=== PATIENT | female | born 2005 | race Caucasian/White ===

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

== ENCOUNTER 2023-03-14 12:59 | Emergency (ER) | payer BC, SELFPAY ==
[2023-03-14 13:00] VITALS: BP 157/102; PULSE 97; RESP 18; TEMP 36.3; O2SAT 99; BMI 35.3
--- NOTE | 2023-03-14 13:14 | CT_ITS ---
STUDY: CT ABDOMEN AND PELVIS WITHOUT CONTRAST REASON FOR EXAM: Female, 18 years old. Left lower quadrant pain with radiation to the left flank. History of kidney stones. RADIATION DOSAGE (If Supplied By Facility): CTDIvol = ( 15.52 ) mGy, DLP = ( 794.78 ) mGycm TECHNIQUE: Transaxial images were obtained from the dome of the diaphragm to the symphysis pubis without oral contrast, and without intravenous contrast. Sagittal and coronal images were reconstructed. Individualized dose optimization techniques were used for this CT. COMPARISON: Comparison is made with prior study dated September 26, 2022. FINDINGS: The visualized lung bases are unremarkable. The visualized portions of the heart are within normal limits. There is decreased attenuation of the liver consistent with steatosis. Normal gallbladder and extrahepatic biliary system. Normal spleen. Normal pancreas. Normal bilateral adrenal glands. Punctate nonobstructive calculus in the upper pole of the right kidney. 2 mm calculus in the midpole calyx of the right kidney. Punctate calculus in the midpole calyx of the left kidney. Mild degree of left hydronephrosis and left hydroureter due to a punctate calculus in the left ureterovesical junction. There is a small hiatal hernia. Normal small intestine. Normal colon. The appendix is visualized and appears normal. Normal abdominal aorta. Normal inferior vena cava. Normal retroperitoneum. The urinary bladder is empty. Normal abdominal wall. Normal osseous structures. CT/Abdomen/Pelvis without Cont IMPRESSION: Small nonobstructive bilateral intrarenal calculi. Punctate calculus at the left ureterovesical junction causing a mild degree of left hydronephrosis and hydroureter. Fatty infiltration of the liver. Electronically Signed: Balbir Godoy MD at 14:17 EDT ,
--- NOTE | 2023-03-14 13:19 | ED.VIS.GI ---
HPI HPI - GI History of Present Illness Chief Complaint: Abd Pain Detail of Chief Complaint: Left flank pain this morning. Informant: patient Abdominal Pain/Flank Pain Onset: Today and Hours Context: Sudden Onset Timing: Continuous Quality: Sharp and Stabbing Location: Left Flank Current Severity: Mild Maximum Severity: Moderate Worsened by: Nothing Relieved by: Nothing Nausea/Vomiting/Emesis GI Symptom: Positive for Nausea Onset: Today Severity: Mild Diarrhea/Melena/Hematochezia GI Symptom: Negative for Diarrhea, Melena or Hematochezia Associated Symptoms Associated Symptoms: Negative for Dysuria, Frequency, Hematuria or Urgency Narrative Narrative: 18 left flank pain. History of polycystic ovarian syndrome. Thinks she may have previously had a kidney stone but is never actually been worked up for that. Last menstrual period was 2 weeks ago. Today around 8 AM had sudden onset of left flank pain. Associated nausea no vomiting or diarrhea. No fever. No dysuria. No vaginal bleeding or discharge. Prior similar symptoms: Yes Recent Illness/Hospitalization: No PFSH PFSH Medical History Allergies Elevated blood pressure reading Kidney stone Obesity PCOS (polycystic ovarian syndrome) Pneumonia UTI (urinary tract infection) Home Medications metformin 1,000 mg tablet 1,000 mg PO BID #60 tabs 01/02/23 [Rx Last Taken Unknown] ondansetron 4 mg disintegrating tablet 4 mg PO Q6H PRN nausea and vomiting #7 tabs 03/14/23 [Rx Last Taken Unknown] oxycodone-acetaminophen 5 mg-325 mg tablet (Percocet) 1 tab PO Q8H PRN pain 2 days #10 tabs 03/14/23 [Rx Last Taken Unknown] Allergy/AdvReac Type Severity Reaction Status Date / Time cows Allergy Mild Swelling Uncoded 01/02/23 08:36 horses Allergy Mild Swelling Uncoded 01/02/23 08:36 cockroaches Allergy Other Uncoded 01/02/23 08:36 Family History Other Anxiety Colon cancer Diabetes Mental disorder Ovarian cancer Skin cancer Thyroid disorder Surgical History History of knee surgery [place] teeth removed Social History Smoking Status: Never smoker alcohol intake: never frequency: daily ROS ROS ED ROS Narrative Left flank pain with nausea. Review of Systems ROS Unobtainable: Denies due to encephalopathy Constitutional Constitutional ED: Denies chills or fever(s) ENT ENT ED: Denies ear pain Cardiovascular Cardiovascular: Denies chest pain Respiratory/Chest Respiratory/Chest: Denies cough or dyspnea Gastrointestinal Gastrointestinal: Reports abdominal pain and nausea; Denies constipation, diarrhea, melena or vomiting Genitourinary Genitourinary ED: Denies dysuria or hematuria Musculoskeletal Musculoskeletal: Denies arthralgias Integumentary Denies abscess Neurologic Neurologic: Denies headache(s) Psychiatric Psychiatric: Denies anxiety Endocrine Endocrinology: Denies polydipsia Hematologic/Lymphatic Hematologic/Lymphatic: Denies easy bleeding Allergic/Immunologic Allergic/Immunologic ED: Denies mouth swelling or tongue swelling EXAM Physical Exam Narrative Exam Narrative: -year-old female no acute distress. Vital signs stable afebrile. H EENT exam unremarkable. Lungs clear. Heart regular rhythm. Abdomen soft nondistended normal bowel sounds no peritoneal signs. Mild left upper quadrant tenderness. No organomegaly or masses. No distention. Right upper and right lower quadrants are nontender. Back is nontender. Moving all 4 extremities. Nontender no edema. Awake and alert. Const Vital Signs: 03/14/23 13:00 03/14/23 15:33 Temperature 97.4 F L Temperature Source Temporal Pulse Rate 97 68 Respiratory Rate 18 16 Blood Pressure 157/102 H 126/78 H Blood Pressure Mean 120 94 Pulse Ox 99 Oxygen Delivery Method Room Air Room Air Positive well nourished and well developed; Negative for cachectic, contractures or unkempt General Appearance ED: well developed and NAD; Negative for unkempt, cachectic, contractures or pallor Nutritional Appearance: Negative for cachectic HEENT Reports moist mucous membranes normocephalic and atraumatic; Negative for trauma or tenderness Eyes PERRL and EOMs intact bilaterally General Eye ED: Negative for pale conjunctiva or scleral icterus Neck no lymphadenopathy, supple and no JVD General: Negative for tenderness Carotids: Negative for other Lymph Lymphatic: Negative for other Resp normal respiratory effort and clear to auscultation bilaterally Effort and Inspection: Negative for respiratory distress Auscultation: Negative for rales, rhonchi or wheezes Cardio regular rate, regular rhythm, S1 normal heart sound, S2 normal heart sound and no murmurs Rate: Negative for bradycardia or tachycardic Rhythm: Negative for abnormal rhythm GI non-tender, non-distended and no masses Inspection: Negative for abdominal distention Auscultation: normoactive bowel sounds Palpation: soft and tender; Negative for guarding, rigid, hepatomegaly, splenomegaly, hernia, mass, pulsatile mass or rebound tenderness present Back/Spine no CVA tenderness General Back: Negative for CVA tenderness Cervical Spine: Negative for cervical spine tenderness Thoracic Spine / Upper Back: Negative for thoracic spinal tenderness Lumbar Spine / Lower Back: Negative for lumbar spinal tenderness Coccyx: Negative for other Extremity full ROM General Extremety ED: Negative for edema, tenderness or other findings General Extremity: Negative for edema or other findings Neuro CN's II-XII intact bilaterally and moves all extremities Sensorium / Orientation: alert, oriented to person, oriented to place and oriented to time; Negative for orientation impaired, confused, lethargic or stuporous Motor Exam: strength 5/5 throughout Psych mental status grossly normal and thought process normal Appearance: Negative for unkempt Attitude: No agitated Mood & Affect: Negative for depressed, anxious or tearful Skin no wounds General Skin Exam: Negative for jaundice or pallor Lesions: no lesions Rashes: no rashes Trauma: Negative for abrasion Nails: Negative for discolored MDM MDM MDM Narrative Medical decision making narrative: 18-year-old female no acute distress with left flank pain. Being evaluated for possible kidney stone versus UTI versus other etiologies. Treated with Toradol, morphine for pain and Zofran. Repeat exam to see patient is doing well. Abdomen is benign. We discussed all of her test results. Tests and exam are consistent with a left-sided kidney stone. She is feeling improved. Will discharge home. Precautions were placed. Zofran for nausea. Follow-up as needed. Return if worse. History & Record Review Discussion w/independent historian: Patient Lab Data Attestation: I reviewed the patient's lab results. Lab results narrative: Urinalysis shows no nitrites. Occult blood. Ketones. No white or red cells. No nitrites. Chemistries show sodium 134 gap of 8 normal BUN and creatinine 0.9. Liver enzymes unremarkable. Serum test negative. CBC shows an elevated white count of 14.8. H&H 12.7 and 40. Platelets 275. Labs: Laboratory Results - last 24 hr 03/14/23 03/14/23 14:21 15:00 WBC 14.8 H RBC 4.33 Hgb 12.7 Hct 40.3 MCV 93.1 MCH 29.3 MCHC 31.5 L RDW Std Deviation 42.4 RDW Coeff of Skyla 12.3 Plt Count 275 MPV 10.3 Immature Gran % (Auto) 0.500 Neut % (Auto) 93.6 H Lymph % (Auto) 3.4 L [place] % (Auto) 2.3 Eos % (Auto) 0.0 Baso % (Auto) 0.2 Absolute Neuts (auto) 13.8 H Absolute Lymphs (auto) 0.50 L Blast Cells % 0 Nucleated RBC % 0 Differential Comment SEE COMMENT Platelet Estimate ADEQUATE Plt Morphology Comment 0 Anisocytosis RARE Macrocytosis RARE Sodium 134 L Potassium 4.5 Chloride 105 Carbon Dioxide 21.0 Anion Gap 8 BUN 10 Creatinine 0.92 Estim Creat Clear Calc 84.23 Est GFR (MDRD) Af Amer 100 Est GFR (MDRD) Non-Af 83 BUN/Creatinine Ratio 10.9 Glucose 100 Calcium 8.9 Total Bilirubin 0.50 AST 26 ALT 38 Alkaline Phosphatase 83 Total Protein 7.1 Albumin 3.7 Globulin 3.4 Albumin/Globulin Ratio 1.1 Serum , Qual NEGATIVE Urine Color Yellow Urine Clarity Cloudy Urine pH 6.0 Ur Specific [place] 1.025 Urine Protein 30 H Urine Glucose (UA) Normal Urine Ketones 150 A* Urine Occult Blood 250 H Urine Nitrite Negative Urine Bilirubin Negative Urine Urobilinogen Normal Ur Leukocyte Esterase 100 H Urine RBC 0-5 SEEN Urine WBC 0 SEEN Ur Squamous Epith Cells 0 SEEN Amorphous Sediment 3+ Urine Bacteria 0 SEEN Urine Mucus 0 SEEN Radiography Diagnostic Testing: Clinical Impression(s) from Imaging Studies Abdomen/Pelvis CT 03/14/23 13:14 IMPRESSION: Small nonobstructive bilateral intrarenal calculi. Punctate calculus at the left ureterovesical junction causing a mild degree of left hydronephrosis and hydroureter. Fatty infiltration of the liver. Electronically Signed: Balbir Godoy MD at 14:17 EDT , Discharge Plan Triage Chief Complaint: Abd Pain ED Provider: Anirudh Velásquez Dx/Rx/DC Orders Clinical Impression: Acute left flank pain, Kidney stone on left side Instructions: ED Kidney Stone w/ Colic Prescriptions: New ondansetron 4 mg tablet,disintegrating 4 mg PO Q6H PRN (Reason: nausea and vomiting) Qty: 7 0RF oxycodone-acetaminophen [Percocet] 5-325 mg tablet 1 tab PO Q8H PRN (Reason: pain) 2 Days Qty: 10 0RF No Action metformin 1,000 mg tablet 1,000 mg PO BID Qty: 60 6RF Primary Care Provider: Ulises Hector Referrals: Ulises Hector MD [Primary Care Provider] - 3-5 Days if not improving Activity Restrictions/Additional Instructions: Left-sided kidney stone. Should pass. Plenty of fluids. Motrin and Percocet for pain. Follow-up with your doctor if not improving. Disposition Disposition: Home, Self Care
[2023-03-14] MEDS: Morphine 4 MG/ML Syringe IV (13:23)
[2023-03-14] MEDS: Ketorolac 30 MG/ML Syringe IV (13:23)
[2023-03-14] MEDS: Ondansetron 4 MG/2 ML Vial IV (13:23)
[2023-03-14 14:45] LABS: Bacteria 0 SEEN /hpf (None Seen); Mucous, Urine 0 SEEN /hpf (<or=2+); Squamous Epithelial Cells - UA 0 SEEN /hpf (5-10); White Blood Cells 0 SEEN /hpf (0-5)
[2023-03-14 14:55] LABS: Color, Urine Yellow (Yellow); Glucose, Dipstick Normal (Normal); Leukocyte Esterase-Dipstick 100 /ul (Negative); Nitrite-Dipstick Negative (Negative); Occult Blood-Urine 250 /ul (Negative); Protein-Dipstick 30 mg/dl (Negative); Specific Gravity, Urine 1.025 (1.002-1.030); Urine Bilirubin Dipstick Negative (Negative); Urine Clarity Cloudy (Clear); Urine Urobilinogen Normal (Normal)
[2023-03-14 14:58] LABS: Ketone-Dipstick 150 mg/dl (Negative)
[2023-03-14 15:06] LABS: Absolute Neutrophil Count 13.8 X10^3/uL (2.0-7.7); Basophil# 0.03 X10^3/uL; Basophil% 0.2 % (0-1); Hematocrit 40.3 % (37-47); Hemoglobin 12.7 g/dL (12.0-15.0); Lymphocyte % 3.4 % (19-41); Mean Corp Hgb Conc 31.5 g/dL (32-36); Mean Corpuscular Hgb 29.3 pg (27.0-32.0); Mean Corpuscular Volume 93.1 fL (81-99); Mean Platelet Vol. 10.3 fl (6.2-12.0); Monocyte# 0.34 X10^3/uL; Monocyte% 2.3 % (0-10); NRBC Flagged by Analyzer 0 % (0-5); Neutrophil # 13.84 X10^3/uL (2.7-7.7); Neutrophil % 93.6 % (47-70); POSITIVE DIFFERENTIAL YES; Platelet Count 275 K/mm3 (150-450); RBC Distribution Width CV 12.3 % (11.6-14.6); RBC Distribution Width SD 42.4 fl (35.1-43.9); Red Blood Count 4.33 M/mm3 (4.2-5.4); White Blood Count 14.8 K/mm3 (4.4-11.0)
[2023-03-14 15:18] LABS: Amorphous Sediment 3+; Red Blood Cells-Urine 0-5 SEEN /hpf (0-5)
[2023-03-14 15:19] LABS: Internal QC Validated? YES +Cl - CLEAR BKGD; Pregnancy, Serum, hCG Quali. NEGATIVE Negative
[2023-03-14] MEDS: morphine 8 MG/ML Syringe 6 MG IV (15:22)
[2023-03-14 15:31] LABS: ALB/GLOB Ratio 1.1 RATIO (0.9-2.4); AST(SGOT) 26 U/L (15-37); Alanine Aminotransfer ALT/SGPT 38 U/L (13-56); Albumin, Serum 3.7 g/dL (3.2-5.0); Alkaline Phosphatase 83 U/L (45-117); Anion Gap 8 (5-15); BUN 10 mg/dL (7-18); BUN/Creat Ratio 10.9 RATIO (10-20); Calcium,Total 8.9 mg/dL (8.5-10.1); Chloride 105 mmol/L (98-107); Creatinine, Serum 0.92 mg/dL (0.55-1.02); EST Glomerular Filtration Rate 83 mL/min (>60); Est Glom Filt Rate - Afr Amer 100 mL/min (>60); Estimated Creatinine Clearance 84.23 ml/min; Globulin 3.4 g/dL (2.2-4.2); Glucose 100 mg/dL (74-106); Potassium 4.5 mmol/L (3.5-5.1); Protein, Total 7.1 g/dL (6.4-8.2); Sodium Level 134 mmol/L (136-145)
[2023-03-14 15:33] VITALS: BP 126/78; PULSE 68; RESP 16
[2023-03-14 15:52] LABS: Differential Indicated SCAN CRITERIA MET
[2023-03-14 15:57] LABS: Anisocytosis RARE; Blast 0 % (0-0); Macrocytosis RARE; Platelet Estimate ADEQUATE (ADEQ); Platelet Morphology 0
--- NOTE | 2023-03-14 16:38 | ED.RN ---
IV removed intact, no bleeding at site. Verbalized understanding of instructions.
== END 2023-03-14 16:40 | disposition home or self-care (01) ==
PROVIDERS: Emergency Provider Emergency Medicine; PCP Family Medicine; Referring Provider Emergency Medicine; Visit Provider Emergency Medicine
DX: R10.9 Unspecified abdominal pain (principal); N20.0 Calculus of kidney
CPT/HCPCS: 36415; 74176; 80053; 81001; 84703; 85025; 96374; 96375; 96376; 99283; J7030; A4216; J2405

== ENCOUNTER 2023-06-20 20:28 | Emergency (ER) | payer BC, SELFPAY ==
[2023-06-20 20:29] VITALS: BP 130/89; PULSE 77; RESP 16; TEMP 36.1; O2SAT 99; BMI 33.5
[2023-06-20 20:31] VITALS: BP 130/89; PULSE 77; RESP 16; TEMP 36.1; O2SAT 99
--- NOTE | 2023-06-20 20:51 | CT_ITS ---
INDICATION: Right flank pain, burning with urination. History of kidney stones. EXAMINATION: CT ABDOMEN AND PELVIS WITHOUT CONTRAST TECHNIQUE: Helically acquired images were obtained of the abdomen and pelvis without IV contrast. 2-D reconstructions reviewed. A radiation dose optimization technique was used for this scan. IV Contrast dosage and agent: None. Oral contrast: None. COMPARISON: CT of abdomen from 09/26/2022 FINDINGS: LOWER CHEST: No acute findings within the imaged lung bases. Heart size within normal limits. Mildly elevated right hemidiaphragm. LIVER: Homogeneous. No discrete mass. GALLBLADDER AND BILIARY TREE: No calcified gallstones identified. No pericholecystic edema demonstrated. No significant biliary ductal dilation. PANCREAS: No discrete mass or peripancreatic edema. SPLEEN: Normal size without discrete mass. ADRENAL GLANDS: Unremarkable. KIDNEYS AND URETERS: There are few small right renal calyceal stones measuring up to 3 mm diameter. Tiny stone within lower pole left kidney. Mild right hydroureteronephrosis secondary to 2.5 mm ureterovesical junction stone. No discrete renal mass. PERITONEUM: No significant free peritoneal fluid. No free air detected. RETROPERITONEUM: No retroperitoneal mass or pathologic fluid collection. BOWEL: No evidence of acute appendicitis. No bowel obstruction or significant bowel thickening. No focal inflammatory change. LYMPH NODES: No enlarged mesenteric or retroperitoneal lymph nodes. VESSELS: No acute findings. No abdominal aortic aneurysm. URINARY BLADDER: 2.5 mm right UVJ stone again noted. No significant bladder wall thickening. REPRODUCTIVE ORGANS: No pelvic masses. ABDOMINAL WALL: No acute findings. BONES: Intact with no suspicious osseous lesion. CT/Abdomen/Pelvis without Cont IMPRESSION: Bilateral nephrolithiasis with mild right obstructive uropathy secondary to 2.5 mm right UVJ stone. Electronically Signed: Roddy Guaman MD at 22:25 EDT ,
--- NOTE | 2023-06-20 21:20 | ED.VIS.FEGU ---
HPI HPI - Female History of Present Illness Chief Complaint: Flank Pain Narrative Narrative: 18 female with right flank pain. She has a history of kidney stones, PCOS. Does complain of dysuria and urinary frequency. She describes the pain on the right side as sharp. She had some nausea but has not vomited. She has not had any fevers. She does state that she had some sweating with the pain. She states that she is concerned she has a kidney stone and last time she waited too long. She states has been able to pass all of her kidney stones in the past. PFSH PFS Medical History (Updated 06/20/23 @ 22:[address] Saman Valencia, DO) Allergies Elevated blood pressure reading Kidney stone Obesity PCOS (polycystic ovarian syndrome) Pneumonia UTI (urinary tract infection) Home Medications metformin 1,000 mg tablet 1,000 mg PO BID #60 tabs 01/02/23 [Rx Last Taken Unknown] hydrocodone-acetaminophen 5-325mg 5mg-325mg 1 tab PO Q6H 3 days #12 TABLETS 06/20/23 [Rx Last Taken Unknown] ondansetron 4 mg disintegrating tablet 4 mg PO Q8H PRN PRN Nausea #14 tabs 06/20/23 [Rx Last Taken Unknown] Allergy/AdvReac Type Severity Reaction Status Date / Time animal dander Allergy Unknown Swelling Verified 06/20/23 20:28 cockroach Allergy Unknown Hives, Verified 06/20/23 20:28 swelling Family History Other Anxiety Colon cancer Diabetes Mental disorder Ovarian cancer Skin cancer Thyroid disorder Surgical History History of knee surgery [place] teeth removed Social History Smoking Status: Current every day smoker tobacco type: e-cigarettes alcohol intake: never frequency: daily ROS ROS ED Constitutional Constitutional ED: Reports sweats; Denies chills or fever(s) Eyes Eyes: Denies blurry vision or change in vision ENT ENT ED: Denies ear pain or sore throat Cardiovascular Cardiovascular: Denies chest pain, palpitations or racing heartbeat Respiratory/Chest Respiratory/Chest: Denies cough, dyspnea or sputum Gastrointestinal Gastrointestinal: Reports abdominal pain and nausea; Denies constipation, diarrhea or vomiting Genitourinary Genitourinary ED: Denies dysuria, hematuria or urinary frequency Musculoskeletal Musculoskeletal: Reports other Details: Left flank pain ; Denies arthralgias, myalgias or neck pain Integumentary Denies abscess, Abrasions or rash Neurologic Neurologic: Denies headache(s), paresthesias or weakness Psychiatric Psychiatric: Denies anxiety, depression, suicidal ideation or suicidal thoughts Endocrine Endocrinology: Denies polydipsia or polyuria EXAM Physical Exam Const Vital Signs: 06/20/23 20:29 06/20/23 20:31 Temperature 97 F L 97 F L Temperature Source Temporal Temporal Pulse Rate 77 77 Respiratory Rate 16 16 Blood Pressure 130/89 H 130/89 H Blood Pressure Mean 102 102 Pulse Ox 99 99 General Appearance ED: Negative for pallor HEENT Reports normocephalic, head/scalp atraumatic and moist mucous membranes Eyes PERRL and EOMs intact bilaterally Neck no lymphadenopathy and supple Chest Wall inspection of chest normal and palpation of chest normal Resp normal respiratory effort and clear to auscultation bilaterally Auscultation: Negative for rales, rhonchi or wheezes Cardio regular rate and regular rhythm GI normal to inspection, nondistended, normoactive bowel sounds and non-distended Auscultation: normoactive bowel sounds Palpation: soft Narrative: Deferred Back/Spine no CVA tenderness General Back: Negative for CVA tenderness Cervical Spine: Negative for cervical spine tenderness Extremity normal to inspection General Extremety ED: Yes edema and tenderness General Extremity: edema Neuro oriented x3 and CN's II-XII intact bilaterally Sensorium / Orientation: alert Motor Exam: strength 5/5 throughout Psych mental status grossly normal Attitude: No agitated Skin no rashes or lesions noted and no wounds General Skin Exam: Negative for jaundice or pallor MDM MDM MDM Narrative Medical decision making narrative: -year-old female presenting with left-sided flank pain. Patient presenting with right flank pain. Differential includes colitis, diverticulitis, gastritis, pancreatitis, constipation, UTI, pyelonephritis, renal calculi, ureteral calculi, bowel obstruction, malignancy, dehydration, electrolyte abnormalities, , ectopic , ovarian cyst, ovarian torsion. Patient medicated with morphine, Zofran, Toradol. Urinalysis to assess for UTI or occult blood. hCG to assess for . CBC to assess white blood cell count, hemoglobin and platelets. BMP to assess function and electrolytes. CBC shows normal white blood cell count, hemoglobin and hematocrit. Platelets were normal. hCG negative. Urinalysis negative for infection but does show occult blood. CT abdomen pelvis was obtained and shows a 2.5 mm right UVJ stone patient was counseled on findings. Patient given [place] and Zofran for follow-up. She will follow-up with urology. Return precautions discussed. Impression: 1. 2.5 mm right UVJ stone 2. Hematuria 3. Nausea Lab Data Attestation: I reviewed the patient's lab results. Labs: Laboratory Results - last 24 hr 06/20/23 06/20/23 21:15 21:20 WBC 8.6 RBC 4.62 Hgb 13.5 Hct 42.0 MCV 90.9 MCH 29.2 MCHC 32.1 RDW Std Deviation 41.0 RDW Coeff of Skyla 12.5 Plt Count 302 MPV 10.2 Immature Gran % (Auto) 0.500 Neut % (Auto) 64.8 Lymph % (Auto) 24.3 [place] % (Auto) 6.1 Eos % (Auto) 3.7 Baso % (Auto) 0.6 Absolute Neuts (auto) 5.6 Absolute Lymphs (auto) 2.08 Nucleated RBC % 0 Sodium 138 Potassium 3.5 Chloride 104 Carbon Dioxide 28.0 Anion Gap 6 BUN 11 Creatinine 0.72 Estim Creat Clear Calc 107.63 Est GFR (MDRD) Af Amer 134 Est GFR (MDRD) Non-Af 110 BUN/Creatinine Ratio 15.4 Glucose 85 Calcium 10.0 Serum , Qual NEGATIVE Urine Color Yellow Urine Clarity Clear Urine pH 6.0 Ur Specific [place] 1.020 Urine Protein 15 H Urine Glucose (UA) Normal Urine Ketones Negative Urine Occult Blood 250 H Urine Nitrite Negative Urine Bilirubin Negative Urine Urobilinogen Normal Ur Leukocyte Esterase 25 H Urine RBC 25-50 SEEN Urine WBC 0-5 SEEN Ur Squamous Epith Cells 0-5 SEEN Urine Bacteria RARE Urine Mucus 0 SEEN Radiography Diagnostic Testing: Clinical Impression(s) from Imaging Studies Abdomen/Pelvis CT 06/20/23 20:51 IMPRESSION: Bilateral nephrolithiasis with mild right obstructive uropathy secondary to 2.5 mm right UVJ stone. Electronically Signed: Roddy Guaman MD at 22:25 EDT , Discharge Plan Triage Chief Complaint: Flank Pain ED Provider: Saman Valencia Dx/Rx/DC Orders Instructions: ED Kidney Stone w/ Colic Prescriptions: New ondansetron 4 mg tablet,disintegrating 4 mg PO Q8H PRN PRN (Reason: Nausea) Qty: 14 0RF hydrocodone-acetaminophen 5-325 mg tablet 1 tab PO Q6H 3 Days Qty: 12 0RF No Action metformin 1,000 mg tablet 1,000 mg PO BID Qty: 60 6RF Primary Care Provider: Ulises Hector Referrals: Ulises Hector MD [Primary Care Provider] - Disposition Disposition: Home, Self Care
[2023-06-20 21:22] LABS: Absolute Lymphocyte Count 2.08 X10^3/uL (0.83-4.51); Absolute Neutrophil Count 5.6 X10^3/uL (2.0-7.7); Basophil# 0.05 X10^3/uL; Basophil% 0.6 % (0-1); Eosinophil# 0.32 X10^3/uL; Eosinophils% 3.7 % (0-5); Hemoglobin 13.5 g/dL (12.0-15.0); Lymphocyte # 2.08 X10^3/ul (0.83-4.51); Lymphocyte % 24.3 % (19-41); Mean Corp Hgb Conc 32.1 g/dL (32-36); Mean Corpuscular Hgb 29.2 pg (27.0-32.0); Mean Corpuscular Volume 90.9 fL (81-99); Mean Platelet Vol. 10.2 fl (6.2-12.0); Monocyte# 0.52 X10^3/uL; Monocyte% 6.1 % (0-10); NRBC Flagged by Analyzer 0 % (0-5); Neutrophil # 5.56 X10^3/uL (2.7-7.7); Neutrophil % 64.8 % (47-70); Platelet Count 302 K/mm3 (150-450); RBC Distribution Width CV 12.5 % (11.6-14.6); Red Blood Count 4.62 M/mm3 (4.2-5.4); White Blood Count 8.6 K/mm3 (4.4-11.0)
[2023-06-20 21:25] LABS: Mucous, Urine 0 SEEN /hpf (<or=2+)
[2023-06-20 21:28] LABS: Color, Urine Yellow (Yellow); Glucose, Dipstick Normal (Normal); Ketone-Dipstick Negative (Negative); Leukocyte Esterase-Dipstick 25 /ul (Negative); Nitrite-Dipstick Negative (Negative); Occult Blood-Urine 250 /ul (Negative); Protein-Dipstick 15 mg/dl (Negative); Urine Bilirubin Dipstick Negative (Negative); Urine Clarity Clear (Clear); Urine Urobilinogen Normal (Normal)
[2023-06-20] MEDS: Ondansetron 4 MG/2 ML Vial IV (21:28)
[2023-06-20] MEDS: Morphine 4 MG/ML Syringe IV (21:29)
[2023-06-20 21:36] LABS: Bacteria RARE /hpf (None Seen); Red Blood Cells-Urine 25-50 SEEN /hpf (0-5); Squamous Epithelial Cells - UA 0-5 SEEN /hpf (5-10); White Blood Cells 0-5 SEEN /hpf (0-5)
[2023-06-20 21:36] LABS: Anion Gap 6 (5-15); BUN 11 mg/dL (7-18); BUN/Creat Ratio 15.4 RATIO (10-20); Chloride 104 mmol/L (98-107); Creatinine, Serum 0.72 mg/dL (0.55-1.02); EST Glomerular Filtration Rate 110 mL/min (>60); Est Glom Filt Rate - Afr Amer 134 mL/min (>60); Estimated Creatinine Clearance 107.63 ml/min; Glucose 85 mg/dL (74-106); Potassium 3.5 mmol/L (3.5-5.1); Sodium Level 138 mmol/L (136-145)
[2023-06-20] MEDS: Ketorolac 15 MG/ML Vial IV (21:37)
[2023-06-20 21:39] LABS: Internal QC Validated? YES +Cl - CLEAR BKGD; Pregnancy, Serum, hCG Quali. NEGATIVE Negative
[2023-06-20 22:54] VITALS: BP 128/80; PULSE 75; RESP 16; O2SAT 97; O2SAT 98
== END 2023-06-20 23:38 | disposition home or self-care (01) ==
PROVIDERS: Emergency Provider Student in an Organized Health Care Education/Training Program; PCP Family Medicine; Visit Provider Student in an Organized Health Care Education/Training Program
DX: N20.0 Calculus of kidney (principal); R11.0 Nausea; R31.9 Hematuria, unspecified; F17.290 Nicotine dependence, other tobacco product, uncomplicated
CPT/HCPCS: 74176; 80048; 81001; 84703; 85025; 96374; 96375; 99282; J7030; A4216; J2405

== ENCOUNTER 2023-10-23 21:59 | Emergency (ER) | payer BC, SELFPAY ==
[2023-10-23 22:01] VITALS: BP 146/108; PULSE 78; RESP 18; TEMP 36.5; O2SAT 100; BMI 32.5
--- OUTSIDE RECORDS SUMMARY | 2023-10-23 22:33 | XMS RPT_ITS | CCD ---
Author Name Unknown Address [address] [place] [address] Organization [facility] Care Team Providers Care Slicing Machine Operator/Tender Name Role Phone Jose A Terry Unavailable Unavailable Desirae Caldera Unavailable Unavailable Desirae Caldera Unavailable Unavailable Unavailable Unavailable Unavailable Allergies Allergy Classification Reported Allergen(s) Allergy Type Date of Onset Reaction(s) Facility Pollen (2 sources) bee pollen Substance Allergy [email or web address] Work Phone: (3 sources) bee pollen allergy to substance [employer] Work Phone: Medications Completed/Discontinued Medications Medication Drug Class(es) Dates Sig (Normalized) Sig (Original) Lo Loestrin Fe 1 MG-10 MCG / 10 MCG Oral Tablet (1 source) Estrogen Start: 08-04-2019 take 1 tablet by mouth once daily Lo Loestrin Fe 1 MG-10 MCG / 10 MCG Oral Tablet TAKE 1 TABLET DAILY. Quantity: 1 Refills: 10 Jose A Terry MD Start : 04-Aug-2019 Active 28 Tablet Pack Ortho Tri-Cyclen (28) TABS (1 source) Progestin, Estrogen Ortho Tri-Cy clen (28) TABS Refills: 0 Active levonorgestrel 0.783468 mg/hr intrauterine system (4 sources) Progestin, Progestin-containin g Intrauterine Device Liletta (52 MG) 19.5 MCG/DAY IUD Quantity: 0 Refills: 0 Ordered: 03-Aug-2020 DO Active Sprintec 28 0.25-35 MG-MCG Oral Tablet (1 source) Start: 03-28-2022 take 1 tablet by mouth once daily Sprintec 28 0.25-35 MG-MCG Oral Tablet TAKE 1 TABLET DAILY. Quantity: 1 Refills: 11 Ordered: 28-Mar-2022 Fried TUBING DRIER-CNM, TUBING DRIER-SEMICONDUCTOR PACKAGES SEALER, Nuvia Start : 28-Mar-2022 Active Problems Active Problems Problem Classification Problem Date Documented Da te Episodic/Chronic Abdominal pain (4 sources) Finding of sensation of abdomen; Translations: [Abdominal pain, unspecified site] Episodic Contraceptive and procreative management (8 sources) Intrauterine contraceptive device in situ; Translations: [Surveillance of intrauterine contraceptive device] Episodic Past or Other Problems Problem Classification Problem Date Documented Da te Episodic/Chronic Unclassified (4 sources) Finding of menstrual bleeding; Translations: [Menstruation] Results Test Name Value Interpretation Reference Range Facil ity Vital Signs Date Time Vital Sign Value Performing Clinician Lorenzo pinky 03-28-2022 13:05-0400 Body height 160.02 cm Desirae L [employer] Work Phone: [facility] [employer] Work Phone: 03-28-2022 13:05-0400 Body mass index (BMI) [Ratio] 35.38 kg/m2 Desirae [employer] Work Phone: [facility] [employer] Work Phone: 03-28-2022 13:05-0400 Body surface area Derived from formula 1.[address] Lal [employer] Work Phone: [facility] [employer] Work Phone: 03-28-2022 13:05-0400 Body weight 90.[address] Lal [employer] Work Phone: [facility] [employer] Work Phone: 03-28-2022 13:05-0400 Diastolic blood pressure 72 mm[Hg] Desirae [employer] Work Phone: [facility] Work Phone: 03-28-2022 13:05-0400 Systolic blood pressure 116 mm[Hg] Desirae [employer] Work Phone: [facility] Work Phone: 03-28-2022 13:05-0400 31 1 Desirae L Verenice Work Phone: [facility] [employer] Work Phone: Encounters Encounter Date Encounter Type Care Provider Facility Start: 03-28-2022 Office outpatient vi sit 10 minutes Desirae L Verenice Work Phone: [facility] [employer] Work Phone: Start: 03-07-2022 Office outpatient vi sit 10 minutes Desirae L Verenice Work Phone: [facility] [employer] Work Phone: Start: 04-17-2021 Chart Update Desirae L McArdl e Work Phone: [facility] [employer] Work Phone: Start: 04-10-2021 Office outpatient vi sit 10 minutes Desirae L Verenice Work Phone: [facility] [employer] Work Phone: Start: 03-26-2018 Patient encounter Facil [id number] Procedures Date Procedure Procedure Detail Performing Clinician Arthroscopy of knee Jose A Montiel Plan of Treatment Date Care Activity Detail Author Start: 03-28-2022 IUDRMVL, Provider: Nuvia Goode, Status: Pen, Time: 1:00 PM IUDRMVL, Provider: Nuvia Goode, Status: Pen, Time: 1:00 PM [facility] [employer] Work Phone: Payers Date Payer Category Payer Unknown [id number] [id number]. [id number] Unknown [id number] Unknown ANTHEM Social History Date Type Detail Facility Never a smoker Never a smoker [facility] [employer] Work Phone: NEGATED: Highlighted row - - [facility] [employer] Work Phone: Functional Status Date Assessment Result Facility NEGATED: Highlighted row Functional performance Functional status health issues are not documented Disease [facility] [employer] Work Phone: Mental Status Date Assessment Result Facility NEGATED: Highlighted row Cognitive function [Interpretation] Cognitive status health issues are not documented Disease [facility] [id number] [employer] Work Phone: History of Present illness Narrative 06-15-2020 Note Date & Type Note Facility 06-15-2020 History of Present illness Narrative Pt. had Ilsa placed 06/2020No regular periods since placementnoticed intermittent cramping and spotting recentlynegative UPTmoving to [place] for college in a few days [employer] Work Phone: History of Present illness Narrative Note Date & Type Note Facility History of Present illness Narrative Pt. presents to discuss IUD removal. States she has experienced weight gain since placement. Living in [place] for college and reports having had normal blood work done with dedicated driver there. Also has KEVIN rx from that dedicated driver. Wants IUD removed, but not ready to do it today. Pt. states she is not currently in a sexual relationship and does not need contraception. [facility] [employer] Work Phone: History of Present illness Narrative Note Date & Type Note Facility History of Present illness Narrative Pt. desires IUD removal and re-start OCP. Had unintended with low dose OCP in past and requests higher dose OCP. 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 Work Phone: Summary Purpose Family History No Family History Records Found Mother Name Dates Details No pertinent family history( V49.89, Z78.9) Status:Active Father Name Dates Details No pertinent family history( V49.89, Z78.9) Status:Active Unknown Family Member Name Dates Details No pertinent family history: Mother, Father(V49.89, Z78.9) Status:Active Unknown Family Member Name Dates Details No pertinent family history: Mother, Father(V49.89, Z78.9) Status:Active Unknown Family Member Name Dates Details No pertinent family history: Mother, Father(V49.89, Z78.9) Status:Active Unknown Family Member Name Dates Details No pertinent family history: Mother, Father(V49.89, Z78.9) Status:Active Advance Directives No Advanced Directives Records FoundNo Advanced Directives Records FoundNo Advanced Directives Records FoundNo Advanced Directives Records FoundNo Advanced Directives Records Found Chief Complaint Patient presents today with concerns with her IUD that was [place] in June by Dr. Terry. Patientstates she has been having intense cramping and spotting and would like to have her sting checked again before she moves out of states.PT HERE TODAY WANTING TO DISCUSS GETTING HER IUD REMOVED. PT STATES EVER SINCE HAVING THE IUD SHE HAS GAINED A TON OF WEIGHT. PT WAS ON THE PILL PRIOR TO THE IUD, BUT SHE GOT ON THE PILL. PTWOULD LIKE TO DISCUSS HER OPTIONS. LMP IUDPT HERE TODAY WANTING TO GET IUD REMOVED. PT STATES SHE HAS HAD TROUBLE LOSING WEIGHT. PT WOULD LIKE TO BE ON THE PILL INSTEAD. Additional Source Comments INFORMATION SOURCE (unrecogn ized section and content) DATE CREATED AUTHOR AUTHOR'S ORGANIZ ATION 05/16/2019 [facility] DATE CREATED AUTHOR AUTHOR'S ORGANIZ ATION 09/21/2020 [facility] DATE CREATED AUTHOR AUTHOR'S ORGANIZ ATION 04/15/2021 [facility] DATE CREATED AUTHOR AUTHOR'S ORGANIZ ATION 04/04/2022 [employer] FOR RECORDS PERTAINING TO PATIENTS WHO ARE OR HAVE BEEN ENROLLED IN A CHEMICAL DEPENDENCY/SUBSTANCEABUSE PROGRAM, SOME INFORMATION MAY BE OMITTED. This clinical summary was aggregated from multiple sources. Caution should be exercised in using it in the provision of clinical care. This summary normalizes information from multiple sources, and as a consequence, information in this document may materially change the coding, format and clinical context of patient data. In addition, data may be omitted in some cases. CLINICAL DECISIONS SHOULD BE BASED ON THE PRIMARY CLINICAL RECORDS. [facility] [employer] provides no warranty or guarantee of the accuracy or completeness of information in this document.
[2023-10-23] MEDS: Morphine 4 MG/ML Syringe IV (22:47)
[2023-10-23] MEDS: Ondansetron 4 MG/2 ML Vial IV (22:47)
[2023-10-23] MEDS: 0.9% Normal Saline (1000mL) 1,000 ML 999 ML IV (22:47)
[2023-10-23 22:49] LABS: Bacteria 0 SEEN /hpf (None Seen); Mucous, Urine 0 SEEN /hpf (<or=2+)
[2023-10-23 22:52] LABS: Absolute Lymphocyte Count 0.57 X10^3/uL (0.83-4.51); Absolute Neutrophil Count 12.6 X10^3/uL (2.0-7.7); Basophil# 0.03 X10^3/uL; Basophil% 0.2 % (0-1); Hematocrit 41.1 % (37-47); Hemoglobin 13.1 g/dL (12.0-15.0); Lymphocyte # 0.57 X10^3/ul (0.83-4.51); Lymphocyte % 4.2 % (19-41); Mean Corp Hgb Conc 31.9 g/dL (32-36); Mean Corpuscular Volume 90.9 fL (81-99); Mean Platelet Vol. 9.9 fl (6.2-12.0); Monocyte% 2.2 % (0-10); NRBC Flagged by Analyzer 0 % (0-5); Neutrophil # 12.63 X10^3/uL (2.7-7.7); Neutrophil % 92.9 % (47-70); POSITIVE DIFFERENTIAL YES; Platelet Count 287 K/mm3 (150-450); RBC Distribution Width CV 12.3 % (11.6-14.6); RBC Distribution Width SD 41.1 fl (35.1-43.9); Red Blood Count 4.52 M/mm3 (4.2-5.4); White Blood Count 13.6 K/mm3 (4.4-11.0)
[2023-10-23 23:02] LABS: Internal QC Validated? YES +Cl - CLEAR BKGD; Pregnancy, Serum, hCG Quali. NEGATIVE Negative
[2023-10-23 23:04] LABS: Anion Gap 9 (5-15); BUN 15 mg/dL (7-18); BUN/Creat Ratio 16.1 RATIO (10-20); Calcium,Total 9.4 mg/dL (8.5-10.1); Chloride 105 mmol/L (98-107); Creatinine, Serum 0.93 mg/dL (0.55-1.02); EST Glomerular Filtration Rate 81 mL/min (>60); Est Glom Filt Rate - Afr Amer 98 mL/min (>60); Estimated Creatinine Clearance 102.42 ml/min; Glucose 113 mg/dL (74-106); Potassium 4.1 mmol/L (3.5-5.1); Sodium Level 138 mmol/L (136-145)
[2023-10-23 23:08] LABS: Color, Urine Yellow (Yellow); Glucose, Dipstick Normal (Normal); Ketone-Dipstick 50 mg/dl (Negative); Leukocyte Esterase-Dipstick 25 /ul (Negative); Nitrite-Dipstick Negative (Negative); Occult Blood-Urine 250 /ul (Negative); Protein-Dipstick 30 mg/dl (Negative); Specific Gravity, Urine 1.015 (1.002-1.030); Urine Bilirubin Dipstick Negative (Negative); Urine Clarity Clear (Clear); Urine Urobilinogen Normal (Normal)
[2023-10-23 23:11] LABS: Differential Indicated SCAN CRITERIA MET
[2023-10-23 23:22] LABS: Platelet Estimate ADEQUATE (ADEQ)
[2023-10-23 23:23] LABS: Anisocytosis RARE; Macrocytosis RARE; Red Cell Morphology N CHROM NORMAL (NORM C&C)
[2023-10-23 23:35] LABS: Red Blood Cells-Urine 50-100 SEEN /hpf (0-5); Squamous Epithelial Cells - UA 0-5 SEEN /hpf (5-10); White Blood Cells 0-5 SEEN /hpf (0-5)
[2023-10-23 23:52] VITALS: BP 156/97; PULSE 79; RESP 18; O2SAT 99
[2023-10-23] MEDS: Ketorolac 30 MG/ML Syringe IV (23:56)
--- NOTE | 2023-10-24 00:39 | EX.ED.DYSGE1 ---
HPI History of Present Illness Chief Complaint: Flank Pain Informant: patient and parent Narrative Narrative: Patient is a 18-year-old female with past medical history of PCOS and kidney stone. She was seen in June 2023 and found to have a kidney stone in the right UVJ as well as multiple kidney stones within the right kidney. Patient states that around 10 or 11 AM this morning while at rest she developed right-sided back pain without trauma or excessive activity. She states it is sharp in nature and does not seem to worsen with any type of motion. She reports that despite taking wvzb-lwp-mtbicum medications the pain has persisted and she has concern this could be repeat kidney stone and therefore comes in for evaluation [facility] Medical History Allergies Elevated blood pressure reading Kidney stone Obesity PCOS (polycystic ovarian syndrome) Pneumonia UTI (urinary tract infection) Home Medications metformin 1,000 mg tablet 1,000 mg PO BID #180 tabs 06/30/23 [Rx Last Taken Unknown] hydrocodone-acetaminophen 5-325mg 5mg-325mg 1 tab PO Q6H PRN PRN Pain 3 days #12 TABLETS 10/24/23 [Rx Last Taken Unknown] ketorolac 10 mg tablet 10 mg PO 4X/DAY PRN PRN pain 5 days #20 tabs 10/24/23 [Rx Last Taken Unknown] ondansetron 4 mg disintegrating tablet 4 mg PO TID PRN nausea and vomiting #21 tabs 10/24/23 [Rx Last Taken Unknown] tamsulosin 0.4 mg capsule (Flomax) 0.4 mg PO DAILY 14 days #14 caps 10/24/23 [Rx Last Taken Unknown] Allergy/AdvReac Type Severity Reaction Status Date / Time animal dander Allergy Unknown Swelling Verified 10/23/23 22:01 cockroach Allergy Unknown Hives, Verified 10/23/23 22:01 swelling Family History Other Anxiety Colon cancer Diabetes Mental disorder Ovarian cancer Skin cancer Thyroid disorder Surgical History History of knee surgery [place] teeth removed Social History Smoking Status: Current every day smoker tobacco type: e-cigarettes alcohol intake: never frequency: daily ROS ROS ED Constitutional Constitutional ED: Denies chills or fever(s) ENT ENT ED: Denies sore throat Cardiovascular Cardiovascular: Denies chest pain Respiratory/Chest Respiratory/Chest: Denies cough or dyspnea Gastrointestinal Gastrointestinal: Reports abdominal pain and nausea; Denies diarrhea or vomiting Genitourinary Genitourinary ED: Denies dysuria or hematuria Musculoskeletal Musculoskeletal: Reports back pain; Denies myalgias Integumentary Denies rash Neurologic Neurologic: Denies headache(s) Hematologic/Lymphatic Hematologic/Lymphatic: Denies easy bleeding or easy bruising EXAM Physical Exam Const Vital Signs: 10/23/23 22:01 10/23/23 23:52 10/24/23 00:45 Temperature 97.7 F L 98.4 F Temperature Source Temporal Pulse Rate 78 79 74 Respiratory Rate 18 18 16 Blood Pressure 146/108 H 156/97 H 149/84 H Blood Pressure Mean 120 116 105 Pulse Ox 100 99 100 Oxygen Delivery Method Room Air Room Air Positive well nourished and well developed General Appearance ED: well developed HEENT HEENT Narrative: Normocephalic atraumatic Eyes PERRL and EOMs intact bilaterally General Eye ED: Negative for scleral icterus Neck supple Resp normal respiratory effort and clear to auscultation bilaterally Cardio regular rate and regular rhythm Rate: other Other Details: Heart is regular rate and rhythm without murmurs rubs or gallops Radial and carotid pulses are equal and symmetric GI non-distended GI Narrative: Abdomen is soft and nondistended with normal active bowel sounds. Patient has mild pain with palpation along the right mid to upper abdomen without any voluntary guarding or rigidity Auscultation: normoactive bowel sounds Palpation: soft Back/Spine Back/Spine Narrative: Positive right CVA pain noted Extremity normal to inspection Neuro oriented x3, CN's II-XII intact bilaterally and no sensory deficits noted Sensorium / Orientation: alert Motor Exam: strength 5/5 throughout Psych mental status grossly normal Skin no rashes or lesions noted Skin Narrative: No overlying soft tissue changes to suggest trauma or infection General Skin Exam: Negative for jaundice MDM MDM MDM Narrative Medical decision making narrative: Patient presented to the ER hypertensive but otherwise with stable vitals. Sudden onset right-sided flank pain is concerning for pyelonephritis versus UTI versus complication such as ovarian cyst or ectopic versus kidney stone. Basic blood work and a urine sample were obtained secondary to this. The patient had a CT scan just roughly 4 months ago which documented stones within the kidney. As her workup shows she is not and does not have findings for UTI and no signs of acute kidney injury I do not feel there is need for repeat imaging as we know she has multiple right-sided kidney stones and in her urine showing blood in her physical exam indicate stone. Patient was medicated and had resolution of her pain and therefore at this time with out signs of DANGELO or urosepsis or complication and improvement of pain she can follow-up with urology on an outpatient basis History & Record Review Discussion w/independent historian: Patient Lab Data Attestation: I reviewed the patient's lab results. Labs: Laboratory Results - last 24 hr 10/23/23 22:28 WBC 13.6 H RBC 4.52 Hgb 13.1 Hct 41.1 MCV 90.9 MCH 29.0 MCHC 31.9 L RDW Std Deviation 41.1 RDW Coeff of Skyla 12.3 Plt Count 287 MPV 9.9 Immature Gran % (Auto) 0.500 Neut % (Auto) 92.9 H Lymph % (Auto) 4.2 L [place] % (Auto) 2.2 Eos % (Auto) 0.0 Baso % (Auto) 0.2 Absolute Neuts (auto) 12.6 H Absolute Lymphs (auto) 0.57 L Nucleated RBC % 0 Differential Comment SEE COMMENT Platelet Estimate ADEQUATE RBC Morphology N CHROM Anisocytosis RARE Macrocytosis RARE Sodium 138 Potassium 4.1 Chloride 105 Carbon Dioxide 24.0 Anion Gap 9 BUN 15 Creatinine 0.93 Estim Creat Clear Calc 102.42 Est GFR (MDRD) Af Amer 98 Est GFR (MDRD) Non-Af 81 BUN/Creatinine Ratio 16.1 Glucose 113 H Calcium 9.4 Serum , Qual NEGATIVE Urine Color Yellow Urine Clarity Clear Urine pH 7.0 Ur Specific [place] 1.015 Urine Protein 30 H Urine Glucose (UA) Normal Urine Ketones 50 H Urine Occult Blood 250 H Urine Nitrite Negative Urine Bilirubin Negative Urine Urobilinogen Normal Ur Leukocyte Esterase 25 H Urine RBC 50-100 SEEN Urine WBC 0-5 SEEN Ur Squamous Epith Cells 0-5 SEEN Urine Bacteria 0 SEEN Urine Mucus 0 SEEN Discharge Plan Triage Chief Complaint: Flank Pain ED Provider: Lj Escalera Dx/Rx/DC Orders Clinical Impression: Renal colic, Kidney stone, PCOS (polycystic ovarian syndrome) Instructions: ED Kidney Stone with Pain Prescriptions: New ondansetron 4 mg tablet,disintegrating 4 mg PO TID PRN (Reason: nausea and vomiting) Qty: 21 0RF tamsulosin [Flomax] 0.4 mg capsule 0.4 mg PO DAILY 14 Days Qty: 14 0RF hydrocodone-acetaminophen 5-325 mg tablet 1 tab PO Q6H PRN PRN (Reason: Pain) 3 Days Qty: 12 0RF ketorolac 10 mg tablet 10 mg PO 4X/DAY PRN PRN (Reason: pain) 5 Days Qty: 20 0RF No Action metformin 1,000 mg tablet 1,000 mg PO BID Qty: 180 3RF Stand Alone Forms: ED Work / School Excuse Primary Care Provider: Ulises Hector Referrals: Ulises Hector MD [Primary Care Provider] - Satish Moulton MD [Med Staff - Active Staff] - Activity Restrictions/Additional Instructions: Please return to the ER if you develop a fever over 100.4 or your pain is not controlled the prescribed medication. Otherwise keep yourself well-hydrated stay active and follow-up with urology for repeat evaluation Disposition Disposition: Home, Self Care Discharge Date/Time: 10/24/23 00:52
[2023-10-24] MEDS: HYDROcodone Bitartrate/Apap 5/325 Tablet PO (00:42)
[2023-10-24 00:45] VITALS: BP 149/84; PULSE 74; RESP 16; TEMP 36.9; O2SAT 100
[2023-10-24] MEDS: Ondansetron ODT 4 MG Tablet PO (00:52)
== END 2023-10-24 00:52 | disposition home or self-care (01) ==
PROVIDERS: Emergency Provider Emergency Medicine; PCP Family Medicine; Visit Provider Emergency Medicine
DX: N20.0 Calculus of kidney (principal); E28.2 Polycystic ovarian syndrome; F17.290 Nicotine dependence, other tobacco product, uncomplicated
CPT/HCPCS: 80048; 81001; 84703; 85025; 96361; 96374; 96375; 99284; J7030; A4216; J2405

== ENCOUNTER → 2023-11-04 | Outpatient (CLI) | payer BC, SELFPAY ==
[2023-11-18 16:21] LABS: Source Not Provided
[2023-11-18 16:22] LABS: Size 3x2 mm
== END | disposition home or self-care (01) ==
LOC: LABSPEC 15:57
PROVIDERS: PCP Family Medicine; Referring Provider Urology; Visit Provider Urology
DX: Z87.442 Personal history of urinary calculi (principal)
CPT/HCPCS: 82360

== ENCOUNTER → 2023-11-13 | Outpatient (CLI) | payer BC, SELFPAY ==
--- OUTSIDE RECORDS SUMMARY | 2023-11-13 11:12 | XMS RPT_ITS | CCD ---
Author Name Unknown Address [address] [place] [address] Organization [facility] Care Team Providers Care Web Analyst Name Role Phone Jose A Terry Unavailable Unavailable Desirae Caldera Unavailable Unavailable Desirae Caldera Unavailable Unavailable Unavailable Unavailable Unavailable Allergies Allergy Classification Reported Allergen(s) Allergy Type Date of Onset Reaction(s) Facility Pollen (2 sources) bee pollen Substance Allergy [email or web address] Work Phone: (3 sources) bee pollen allergy to substance [employer] Work Phone: Medications Completed/Discontinued Medications Medication Drug [...] clen (28) TABS Refills: 0 Active levonorgestrel 0.165241 mg/hr intrauterine system (4 sources) Progestin, Progestin-containin g Intrauterine Device Liletta (52 MG) 19.5 MCG/DAY IUD Quantity: 0 Refills: 0 Ordered: 03-Aug-2020 DO Active Sprintec 28 0.25-35 MG-MCG Oral Tablet (1 source) Start: 03-28-2022 take 1 tablet by mouth once daily Sprintec 28 0.25-35 MG-MCG Oral Tablet TAKE 1 TABLET DAILY. Quantity: 1 Refills: 11 Ordered: 28-Mar-2022 Fried GRAIN ELEVATOR OPERATOR-CNM, GRAIN ELEVATOR OPERATOR-SHIPPING HAND, Nuvia Start : 28-Mar-2022 Active Problems Active [...] 13:05-0400 Body height 160.02 cm Desirae L [employer] Work Phone: [email or web address] [employer] Work Phone: 03-28-2022 13:05-0400 Body mass index (BMI) [Ratio] 35.38 kg/m2 Desirae [employer] Work Phone: [email or web address] [employer] Work Phone: 03-28-2022 13:05-0400 Body surface area Derived from formula 1.93 m2 Desirae L[employer]le Work Phone: [email or web address] hospital[facility] [employer] Work Phone: 03-28-2022 13:05-0400 Body weight 90.6 kg Desirae Lumaticle Work Phone: [email or web address] [employer] Work Phone: 03-28-2022 13:05-0400 Diastolic blood pressure 72 mm[Hg] Desirae [employer] Work Phone: [email or web address] hospital[facility] Work Phone: 03-28-2022 13:05-0400 Systolic blood pressure 116 mm[Hg] Desirae [employer] Work Phone: [facility] Work Phone: 03-28-2022 13:05-0400 31 1 Desirae L Verenice Work Phone: [facility] [employer] Work Phone: Encounters Encounter Date Encounter Type Care Provider Facility Start: 03-28-2022 Office outpatient vi sit 10 minutes Desirae L Verenice Work Phone: [facility] [employer] Work Phone: Start: 03-07-2022 Office outpatient vi sit 10 minutes Desirae L Verenice Work Phone: [facility] [employer] Work Phone: Start: 04-17-2021 Chart Update Desirae L McArdl e Work Phone: [facility] [employer] Work Phone: Start: 04-10-2021 Office outpatient vi sit 10 minutes Desirae L Verenice Work Phone: [facility] [employer] Work Phone: Start: 03-26-2018 Patient encounter Facil [id number] Procedures Date Procedure Procedure Detail Performing Clinician Arthroscopy of knee Jose A Montiel Plan of Treatment Date Care Activity Detail Author Start: 03-28-2022 IUDRMVL, Provider: Nuvia Goode, Status: Pen, Time: 1:00 PM IUDRMVL, Provider: Nuvia Goode, Status: Pen, Time: 1:00 PM [facility] [employer] Work Phone: Payers Date Payer Category Payer Unknown [id number] [id number]. [id number] Unknown [id number] Unknown ANTHEM Social History Date Type Detail Facility Never a smoker Never a smoker [facility] [employer] Work Phone: NEGATED: Highlighted row - - Wom [facility] [employer] Work Phone: Functional Status Date Assessment Result Facility NEGATED: Highlighted row Functional performance Functional status health issues are not documented [facility] [employer] Work Phone: Mental Status Date Assessment Result Facility NEGATED: Highlighted row Cognitive function [Interpretation] Cognitive status health issues are not documented Disease [email or web address] [address] [employer] Work Phone: History of Present illness Narrative 06-15-2020 Note Date & Type Note Facility 06-15-2020 History of Present illness Narrative Pt. had Ilsa placed 06/2020No regular periods since placementnoticed intermittent cramping and spotting recentlynegative UPTmoving to [place] for college in a few days [employer] Work Phone: History of Present illness Narrative Note Date & Type Note Facility History of Present illness Narrative Pt. presents to discuss IUD removal. States she has experienced weight gain since placement. Living in [place] for college and reports having had normal blood work done with soil specialist there. Also has KEVIN rx from that soil specialist. Wants IUD removed, but not ready to do it today. Pt. states she is not currently in a sexual relationship and does not need contraception. [facility] [employer] Work Phone: History of Present illness Narrative Note Date & Type Note Facility History of Present illness Narrative Pt. desires IUD removal and re-start OCP. Had unintended with low dose OCP in past and requests higher dose OCP. 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 DATE CREATED AUTHOR AUTHOR'S ORGANIZ ATION 04/15/2021 [facility] DATE CREATED AUTHOR AUTHOR'S ORGANIZ ATION 04/04/2022 [employer] FOR RECORDS PERTAINING TO PATIENTS WHO ARE [...] BE BASED ON THE PRIMARY CLINICAL RECORDS. [facility] [employer] provides no warranty or guarantee of the accuracy or completeness of information in this document.
[2023-11-13 12:27] LABS: Hematocrit 43.1 % (37-47); Hemoglobin 13.6 g/dL (12.0-15.0); Mean Corp Hgb Conc 31.6 g/dL (32-36); Mean Corpuscular Hgb 28.7 pg (27.0-32.0); Mean Corpuscular Volume 90.9 fL (81-99); Mean Platelet Vol. 9.9 fl (6.2-12.0); Platelet Count 370 K/mm3 (150-450); RBC Distribution Width SD 40.3 fl (35.1-43.9); Red Blood Count 4.74 M/mm3 (4.2-5.4); White Blood Count 4.8 K/mm3 (4.4-11.0)
[2023-11-13 13:04] LABS: ALB/GLOB Ratio 1.1 RATIO (0.9-2.4); AST(SGOT) 22 U/L (15-37); Alanine Aminotransfer ALT/SGPT 50 U/L (13-56); Albumin, Serum 3.9 g/dL (3.2-5.0); Alkaline Phosphatase 77 U/L (45-117); Anion Gap 4 (5-15); BUN 10 mg/dL (7-18); BUN/Creat Ratio 14.6 RATIO (10-20); Calcium,Total 10.1 mg/dL (8.5-10.1); Chloride 107 mmol/L (98-107); Cholesterol 170 mg/dL (200); Creatinine, Serum 0.68 mg/dL (0.55-1.02); EST Glomerular Filtration Rate 116 mL/min (>60); Est Glom Filt Rate - Afr Amer 140 mL/min (>60); Globulin 3.6 g/dL (2.2-4.2); Glucose 74 mg/dL (74-106); Hemoglobin A1c 5.2 % (3.8-5.6); High Density Lipoprotein 46 mg/dL; Iron 51 ug/dL (50-170); Magnesium 2.1 mg/dL (1.6-2.6); Phosphorus 2.8 mg/dL (2.5-4.9); Protein, Total 7.5 g/dL (6.4-8.2); Sodium Level 137 mmol/L (136-145); Thyroid Stim Hormone (TSH) 0.89 uIU/mL (0.358-3.74); Triglycerides 90 mg/dL; Very Low Density Lipoprotein 18 mg/dL (5-40)
[2023-11-13 13:11] LABS: Amphetamine Urine VISTA NEGATIVE (<1000 ng/mL); Barbiturate Urine VISTA NEGATIVE (< 200 ng/mL); Benzodiazepine Urine VISTA NEGATIVE (< 200 ng/mL); Cocaine Urine VISTA NEGATIVE (< 300 ng/mL); Ecstacy Urine VISTA NEGATIVE (< 500 ng/mL); Methadone Urine VISTA NEGATIVE (< 300 ng/mL); PCP Urine VISTA NEGATIVE (< 25 ng/mL); THC Urine VISTA POSITIVE (< 50 ng/mL); Vista UDS pH Range 7
== END | disposition home or self-care (01) ==
LOC: MTLAB 09:39
PROVIDERS: PCP Family Medicine
DX: F32.A Depression, unspecified (principal); F41.9 Anxiety disorder, unspecified
CPT/HCPCS: 36415; 80053; 80061; 80307; 83036; 83540; 83735; 84100; 84443; 85027

== ENCOUNTER 2024-04-05 11:01 | Emergency (ER) | payer OTHER, BC, SELFPAY ==
[2024-04-05 11:02] VITALS: BP 126/91; PULSE 83; RESP 16; TEMP 36.7; O2SAT 99; BMI 31.2
--- NOTE | 2024-04-05 12:16 | EX.ED.VIS.EY ---
HPI History of Present Illness Chief Complaint: Eye Problem Informant: patient Narrative Narrative: 19-year-old female presenting to the emergency room chief complaint of chemical the right eye. Patient was at work today when some hydrochloric acid splashed and she believes she got some in her right eye. She used the eyewash station for 10 to 15 minutes. She does not wear corrective lenses or contacts. She notes no redness of the eye. She notes a little bit of eye irritation currently. No significant change in vision. No other injuries noted by patient [facility] Medical History Obesity Elevated blood pressure reading PCOS (polycystic ovarian syndrome) Pneumonia Kidney stone UTI (urinary tract infection) Allergies Home Medications ?Medication ?Instructions ?Recorded ?Last Taken ?Type hydrocodone-acetaminophen 5-325mg 1 tab PO Q6H PRN PRN Pain 3 days 10/24/23 Unknown Rx 5mg-325mg #12 TABLETS ketorolac 10 mg tablet 10 mg PO 4X/DAY PRN PRN pain 5 10/24/23 Unknown Rx days #20 tabs ondansetron 4 mg disintegrating 4 mg PO TID PRN nausea and 10/24/23 Unknown Rx tablet vomiting #21 tabs tamsulosin 0.4 mg capsule (Flomax) 0.4 mg PO DAILY 14 days #14 caps 10/24/23 Unknown Rx metformin 1,000 mg tablet 1,000 mg PO BID #180 tabs 02/12/24 Unknown Rx Allergy/AdvReac Type Severity Reaction Status Date / Time animal dander Allergy Unknown Swelling Verified 04/05/24 11:01 cockroach Allergy Unknown Hives, Verified 04/05/24 11:01 swelling Family History Other Anxiety Colon cancer Diabetes Mental disorder Ovarian cancer Skin cancer Thyroid disorder Surgical History [place] teeth removed History of knee surgery Social History Smoking Status: Current every day smoker tobacco type: e-cigarettes alcohol intake: never frequency: daily ROS ROS ED Constitutional Constitutional ED: Denies chills or weight loss Eyes Eyes: Reports other Details: See history of present illness ; Denies blurry vision, change in vision or diplopia ENT ENT ED: Denies ear pain, rhinorrhea or sore throat Cardiovascular Cardiovascular: Denies chest pain, orthopnea, palpitations or racing heartbeat Respiratory/Chest Respiratory/Chest: Denies cough, dyspnea or orthopnea Gastrointestinal Gastrointestinal: Denies abdominal pain, diarrhea, nausea or vomiting Genitourinary Genitourinary ED: Denies dysuria, hematuria or urinary frequency Musculoskeletal Musculoskeletal: Denies arthralgias or myalgias Integumentary Denies abscess or rash Neurologic Neurologic: Denies headache(s) or weakness Psychiatric Psychiatric: Denies anxiety, depression, suicidal ideation or suicidal thoughts Endocrine Endocrinology: Denies polydipsia, polyphagia or polyuria Allergic/Immunologic Allergic/Immunologic ED: Denies mouth swelling, tongue swelling or urticaria EXAM Physical Exam Const Vital Signs: 04/05/24 11:02 Temperature 98.1 F Temperature Source Temporal Pulse Rate 83 Respiratory Rate 16 Blood Pressure 126/91 H Blood Pressure Mean 102 Pulse Ox 99 Oxygen Delivery Method Room Air Positive well nourished and well developed General Appearance ED: well developed HEENT Reports normocephalic, head/scalp atraumatic and moist mucous membranes Eyes PERRL and EOMs intact bilaterally Eyes Narrative: I do not appreciate an conjunctival injection. There is no exudate. I do not see any erythema around the eye. Cornea appears normal. No photophobia. pH of the eye is about 7.5 Neck no lymphadenopathy, supple and no JVD Resp normal respiratory effort and clear to auscultation bilaterally Cardio regular rate, regular rhythm and no murmurs GI normal to inspection, nondistended, normoactive bowel sounds and non-tender Palpation: soft Back/Spine no CVA tenderness and normal ROM Extremity normal to inspection General Extremety ED: Negative for edema General Extremity: Negative for edema Neuro oriented x3 and CN's II-XII intact bilaterally Sensorium / Orientation: alert Motor Exam: strength 5/5 throughout Psych mental status grossly normal Mood & Affect: Negative for depressed or tearful Skin no rashes or lesions noted and no wounds MDM MDM MDM Narrative Medical decision making narrative: Differential diagnosis includes but not limited to chemical conjunctivitis, cold/acid burn corneal abrasion ruptured globe chemical skin burn pH of the eye is normal. The eye is not injected. I do not see any obvious globe rupture or corneal injury. Patient can use some erythromycin ophthalmic ointment as needed for soothing. She is asymptomatic she does not need to use this. If she still having symptoms 3 to 5 days I recommend ophthalmology follow-up. She can return if worsening symptoms or any concerns History & Record Review Discussion w/independent historian: Patient Discharge Plan Triage Chief Complaint: Eye Problem ED Provider: Duy Dang Dx/Rx/DC Orders Clinical Impression: Chemical exposure of eye Instructions: ED Eye Exposure, Chemical Prescriptions: No Action ondansetron 4 mg tablet,disintegrating 4 mg PO TID PRN (Reason: nausea and vomiting) Qty: 21 0RF tamsulosin [Flomax] 0.4 mg capsule 0.4 mg PO DAILY 14 Days Qty: 14 0RF hydrocodone-acetaminophen 5-325 mg tablet 1 tab PO Q6H PRN PRN (Reason: Pain) 3 Days Qty: 12 0RF ketorolac 10 mg tablet 10 mg PO 4X/DAY PRN PRN (Reason: pain) 5 Days Qty: 20 0RF metformin 1,000 mg tablet 1,000 mg PO BID Qty: 180 0RF Primary Care Provider: Corwin Hector Referrals: Eyad Hager MD [Med Staff - Active Staff] - 3-5 Days if not improving Corwin Hector MD [Primary Care Provider] - Activity Restrictions/Additional Instructions: Eye ointment every 6 hours as needed for eye dryness redness or irritation. Monitor for signs of discharge and if present use the eye ointment regularly for 5 days. Follow-up with ophthalmology if needed. Print Language: [place] Disposition Disposition: Home, Self Care Discharge Date/Time: 04/05/24 12:27
--- NOTE | 2024-04-05 12:18 | ED.RN ---
Called bosalex[facility] to ask about drug screen, says it is not needed at this time
[2024-04-05] MEDS: Erythromycin Base 1 OPTH.TUBE 1 APPLIC RIGHT EYE (12:23)
[2024-04-05 12:27] VITALS: BP 124/90; PULSE 78; RESP 19; TEMP 36.6; O2SAT 99
== END 2024-04-05 12:27 | disposition home or self-care (01) ==
PROVIDERS: Emergency Provider Emergency Medicine; PCP Family Medicine; Visit Provider Emergency Medicine
DX: Z77.098 Contact with and (suspected) exposure to other hazardous, chiefly nonmedicinal, chemicals (principal); F17.290 Nicotine dependence, other tobacco product, uncomplicated
CPT/HCPCS: 99282